=== PATIENT | female | born 1995 ===

== ENCOUNTER 2020-12-30 09:52 | Emergency (ER) | payer SELFPAY | END 2020-12-30 15:30 | disposition home or self-care (01) | LOC: CSHERS 09:52 | DX: S46.912A Strain of unspecified muscle, fascia and tendon at shoulder and upper arm level, left arm, initial encounter (principal); S20.212A Contusion of left front wall of thorax, initial encounter; J45.909 Unspecified asthma, uncomplicated; W10.9XXA Fall (on) (from) unspecified stairs and steps, initial encounter ==